=== PATIENT | female | born 1990 | race Caucasian/White ===

== ENCOUNTER 2019-04-19 20:54 | Emergency (ER) | payer MEDICAID, OTHER, SELFPAY ==
[~2019-04-19] VITALS: Ht 152.4 cm; Wt 61.0 kg
[2019-04-19 21:00] VITALS: BP 124/74
[2019-04-19] MEDS ORDERED: KETOROLAC 30 MG/1 ML ONE (21:28)
[2019-04-19] MEDS ORDERED: ONDANSETRON 2MG/ML, 2ML ONE (21:28)
[2019-04-19] MEDS ORDERED: FAMOTIDINE 20 MG/2 ML ONE (21:28)
[2019-04-19] MEDS ORDERED: KETOROLAC 30 MG/1 ML IVPush ONE (21:30)
[2019-04-19] MEDS ORDERED: FAMOTIDINE 20 MG/2 ML IVP ONE (21:30)
[2019-04-19] MEDS ORDERED: ONDANSETRON 2MG/ML, 2ML IVPush ONE (21:30)
[2019-04-19 21:48] LABS: BASOPHILS # (AUTO) 0.04 x10^3/uL (0-0.1); BASOPHILS % (AUTO) 0 % (0-1); EOSINOPHILS # (AUTO) 0.02 x10^3/uL (0-0.4); EOSINOPHILS % (AUTO) 0 % (1-7); LYMPHOCYTES # (AUTO) 2.33 x10^3/uL (1-3.4); LYMPHOCYTES % (AUTO) 15 % (22-44); MD NO; MEAN CORPUSCULAR HEMOGLOBIN 31.7 pg (27.0-34.8); MEAN CORPUSCULAR HGB CONC 33.4 g/dL (32.4-35.8); MEAN CORPUSCULAR VOLUME 94.9 fL (80-100); MEAN PLATELET VOLUME 8.3 fL (7.4-10.4); MONOCYTES # (AUTO) 0.69 x10^3/uL (0.2-0.8); MONOCYTES % (AUTO) 5 % (2-9); NEUTROPHILS # (AUTO) 12.27 x10^3/uL (1.8-6.8); NEUTROPHILS % (AUTO) 80 % (42-75); PLATELET COUNT 240 x10^3/uL (130-400); RED BLOOD COUNT 5.01 x10^6/uL (3.82-5.3); RED CELL DISTRIBUTION WIDTH 12.6 % (9.6-15.2)
--- NOTE | 2019-04-19 21:51 | NUR ---
PT MEDICATED ORDERED AND URINE TO LAB.
[2019-04-19 21:55] LABS: CULTURE INDICATED? YES; MICROSCOPIC AUTO
[2019-04-19 21:58] LABS: ALBUMIN 3.1 g/dL (3.4-5.0); ANION GAP 9 mmol/L (5-15); CALCIUM 8.3 mg/dL (8.5-10.1); CHLORIDE 109 mmol/L (98-107)
[2019-04-19 22:01] LABS: ALANINE AMINOTRANSFERASE 8 U/L (12-78); ALKALINE PHOSPHATASE 36 U/L (45-117); BILIRUBIN,TOTAL 0.3 mg/dL (0.2-1.0); CREATININE 0.69 mg/dL (0.55-1.02)
== END 2019-04-19 22:36 | disposition home or self-care (01) ==
LOC: ED 22:30
DX: A09 Infectious gastroenteritis and colitis, unspecified (principal)
CPT/HCPCS: 36415; 80053; 81001; 83690; 84703; 85025; 87086; 96374; 96375; 99283; J1885; J2405; J3490